=== PATIENT | female | born 1940 | race Asian ===

== ENCOUNTER 2021-11-03 12:15 | Day surgery (SDC) | payer MEDICARE, OTHER ==
[~2021-11-03] VITALS: Ht 149.9 cm; Wt 52.9 kg
[~2021-11-03 12:15] MED LIST: LOSA25 PO; Oxybutynin Chlo10 MG PO
--- NOTE | 2021-11-03 12:48 | NUR ---
PT ADMITTED TO [facility]. AGREES WITH PLANNED PROCEDURE. LUNG SOUNDS CLEAR.
--- NOTE | 2021-11-03 14:37 | NUR ---
THIS RN BEEN GIVEN REPORT FROM SANDRA AND IS ASSUMING CARE OF PT AT THIS TIME.
--- NOTE | 2021-11-03 15:48 | NUR ---
11/03/21 1548 BYRON OCONNOR History, Chart, Medications and Allergies reviewed before start of procedure. Patient confirms NPO status and agrees with scheduled surgery. 3-LEAD EKG REVIEWED WITH PHYSICIAN PRIOR TO START OF PROCEDURE. MONITOR INTACT WITH CONTINUOUS PULSE OXIMETRY AND INTERMITTENT BP. PATIENT DETERMINED TO BE ASA APPROPRIATE FOR PROPOFOL SEDATION PRIOR TO START OF PROCEDURE BY 02 VIA POM MASK.
--- NOTE | 2021-11-03 16:50 | NUR ---
Patient up to Ambulate independently. Gait steady. Discharge instructions reviewed with patient. Patient verbalizes understanding. Copy given to patient to take home, FAMILY PRESENT. Patient States Post-Procedure ride home has been arranged. Discharged via wheelchair to private car for ride home.
== END 2021-11-03 16:50 | disposition home or self-care (01) ==
LOC: ORSCMMR 12:15 → ORSCSDS 13:30 → ORD 13:30 → ORSCMMR 13:30
PROVIDERS: Internal Medicine Gastroenterology
PROC: 0DJ08ZZ Inspection of Upper Intestinal Tract, Via Natural or Artificial Opening Endoscopic (ICD-10-PCS; 2021-11-03)
PROC: 0D757ZZ Dilation of Esophagus, Via Natural or Artificial Opening (ICD-10-PCS; principal; 2021-11-03 13:30)
DX: K21.9 Gastro-esophageal reflux disease without esophagitis (principal); R13.10 Dysphagia, unspecified; Z79.899 Other long term (current) drug therapy
CPT/HCPCS: J2704; J7120

== ENCOUNTER → 2023-06-25 | Outpatient (CLI) | payer MEDICARE, OTHER | LOC: LAB SHORT 13:40 → LAB 13:40 | DX: R41.3 Other amnesia (principal) | CPT/HCPCS: 87086 ==